=== PATIENT | male | born 1995 | race Caucasian/White ===

== ENCOUNTER 2016-12-15 02:24 | Emergency (ER) | payer BC ==
[2016-12-15 03:00] VITALS: BP 137/91
[2016-12-15 03:33] LABS: Hematocrit 43 % (42-52); Hemoglobin 14.7 g/dl (14.0-18.0); Mean Corpuscular HGB Conc 34 g/dl (31-36); Mean Corpuscular Hemoglobin 29 pg (27-31); Mean Corpuscular Volume 85 fL (80-94); Mean Platelet Volume 7 um3 (7.4-10.4); Red Blood Count 5.04 10^6/ul (4.0-5.4); Red Cell Distribution Width 13 % (10.5-15); White Blood Count 7.5 10^3/ul (3.5-10.8)
--- NOTE | 2016-12-15 03:34 | ED ---
Psychiatric Complaint - HPI Summary HPI Summary: Patient presents for evaluation of acute depression and suicidal thoughts. He is stressed over the prospect of graduating and starting a new job. Drank alcohol and had suicidal thoughts. Sent for evaluation. Previous antidepressant use and psychotherapy with good results. - History Of Current Complaint Chief Complaint: [facility]entalHealth Time Seen by Provider: 12/15/16 03:07 Hx Obtained From: Patient Onset/Duration: Gradual Onset Character: Depressed, Anxious Aggravating Factor(s): Recent Stress Alleviating Factor(s): Nothing Related History: Positive For: Prior Psychiatric Issues - Allergies/Home Medications Allergies/Adverse Reactions: Allergies Allergy/AdvReac Type Severity Reaction Status Date / Time No Known Allergies Allergy Verified 12/15/16 03:03 PMH/Surg Hx/FS Hx/Imm Hx Previously Healthy: Yes Infectious Disease History: No Infectious Disease History: Denies: Traveled Outside the [place] in Last 30 Days - Social History Alcohol Use: Occasionally Alcohol Amount: Pt reports use this date Substance Use Type: Reports: None Substance Use Comment - Amount & Last Used: Pt denies use Smoking Status (MU): Never Smoked Tobacco Review of Systems Positive: Anxious, Depressed All Other Systems Reviewed And Are Negative: Yes Physical Exam Triage Information Reviewed: Yes Vital Signs On Initial Exam: Initial Vitals Temp Pulse Resp BP Pulse Ox 98.4 F 83 16 137/91 96 12/15/16 02:25 12/15/16 02:25 12/15/16 02:25 12/15/16 02:25 12/15/16 02:25 Vital Signs Reviewed: Yes Appearance: Positive: Well-Appearing, No Pain Distress, Well-Nourished Skin: Positive: Warm, Skin Color Reflects Adequate Perfusion, Dry Eyes: Positive: Normal, EOMI, PHIL ENT: Positive: Normal ENT inspection, Hearing grossly normal Respiratory/Lung Sounds: Positive: Clear to Auscultation, Breath Sounds Present Cardiovascular: Positive: Normal, RRR, Pulses are Symmetrical in both Upper and Lower Extremities Abdomen Description: Positive: Nontender, No Organomegaly, Soft Musculoskeletal: Positive: Normal, Strength/ROM Intact Neurological: Positive: Normal, Sensory/Motor Intact, Alert, Oriented to Person Place, Time, CN Intact II-III Psychiatric: Positive: Anxious, Depressed Diagnostics - Vital Signs Vital Signs Temp Pulse Resp BP Pulse Ox 12/15/16 02:25 98.4 F 83 16 137/91 96 - Laboratory Result Diagrams: 12/15/16 02:30 12/15/16 02:30 Lab Statement: Any lab studies that have been ordered have been reviewed, and results considered in the medical decision making process. Course/Dx - Differential Dx/Clinical Impression Differential Diagnosis/HQI/PQRI: Positive: Anxiety, Depression, Suicidal Ideation Provider Diagnosis: DEPRESSIVE D/O,NOS Discharge - Discharge Plan Condition: Stable Disposition: HOME Referrals: RICHIE Parish [Primary Care Provider] -
[2016-12-15 03:42] LABS: Acetaminophen < 15 mcg/mL; Alcohol 202 mg/dL (<10); Anion Gap 10 mmol/L (2-11); BUN/Creatinine Ratio 16.8 (8-20); Blood Urea Nitrogen 17 mg/dL (6-24); CO2 Carbon Dioxide 23 mmol/L (22-32); Calcium 9.6 mg/dL (8.6-10.3); Chloride 108 mmol/L (101-111); EGFR African American 119.9 (>60); EGFR Non-African American 93.2 (>60); Glucose 104 mg/dL (70-100); Potassium 3.8 mmol/L (3.5-5.0); Salicylate < 2.50 mg/dL (<30); Sodium 141 mmol/L (133-145)
[2016-12-15 04:32] LABS: Benzodiazepine Urine Screen None Detected (None Detect)
== END 2016-12-15 10:29 | disposition home or self-care (01) ==
LOC: ED 02:24
DX: F32.9 Major depressive disorder, single episode, unspecified (principal)
CPT/HCPCS: 36415; 80048; 80307; 80320; 80329; 85027; 99284; G0480

== ENCOUNTER 2017-03-25 02:38 | Emergency (ER) | payer BC ==
[2017-03-25 04:00] LABS: Urine Bilirubin Negative (Negative); Urine Glucose Negative (Negative); Urine Nitrite Negative (Negative)
[2017-03-25 04:05] LABS: Hematocrit 42 % (42-52); Hemoglobin 14.4 g/dl (14.0-18.0); Mean Corpuscular HGB Conc 35 g/dl (31-36); Mean Corpuscular Hemoglobin 30 pg (27-31); Mean Corpuscular Volume 86 fL (80-94); Mean Platelet Volume 7 um3 (7.4-10.4); Red Blood Count 4.87 10^6/ul (4.0-5.4); Red Cell Distribution Width 13 % (10.5-15); White Blood Count 8.5 10^3/ul (3.5-10.8)
[2017-03-25 04:08] LABS: ALT 20 U/L (7-52); AST 26 U/L (13-39); Albumin 4.4 g/dL (3.2-5.2); Alkaline Phosphatase 44 U/L (34-104); Anion Gap 10 mmol/L (2-11); BUN/Creatinine Ratio 13.3 (8-20); Blood Urea Nitrogen 15 mg/dL (6-24); CO2 Carbon Dioxide 24 mmol/L (22-32); Calcium 9.4 mg/dL (8.6-10.3); Chloride 104 mmol/L (101-111); EGFR African American 105.4 (>60); EGFR Non-African American 81.9 (>60); Globulin 2.5 g/dL (2-4); Glucose 112 mg/dL (70-100); Sodium 138 mmol/L (133-145); Total Protein 6.9 g/dL (6.4-8.9)
[2017-03-25 04:09] LABS: Acetaminophen < 15 mcg/mL; Alcohol 182 mg/dL (<10); Salicylate < 2.50 mg/dL (<30)
[2017-03-25 04:12] LABS: Benzodiazepine Urine Screen None Detected (None Detect)
[2017-03-25 04:19] LABS: TSH (Thyroid Stimulating Horm) 3.86 mcIU/mL (0.34-5.60)
[2017-03-25] MEDS ORDERED: Potassium Chlor TAB* 20 MEQ TAB.ER PO ONE (14:07)
[2017-03-25 14:40] VITALS: BP 132/77
--- NOTE | 2017-03-25 15:05 | ED ---
IRandell Billy, scribed for J Carlos Jain MD on 03/25/17 at 1412 . Progress - Progress Note Progress Note: Patient was signed out by Dr. Summers at shift change pending [facility]. He was evaluated by Dr. Robles, who determined that he will be discharged home. He was instructed to follow up with the psychiatrist that he had previously worked with 1 month ago. The [facility] has discussed potential therapy options with the patient and family. Course/Dx - Diagnoses Provider Diagnoses: Alcohol use disorder, unspecified depressive disorder Discharge - Discharge Plan Condition: Stable Disposition: HOME Referrals: Abena Avila NP [Primary Care Provider] - The documentation as recorded by the Randell moses Billy accurately reflects the service I personally performed and the decisions made by , J Carlos Jain MD.
== END 2017-03-25 14:39 | disposition home or self-care (01) ==
LOC: ED 02:38
DX: F32.9 Major depressive disorder, single episode, unspecified (principal); Z72.89 Other problems related to lifestyle
CPT/HCPCS: 36415; 80053; 80307; 80320; 80329; 81003; 84443; 85025; 99285; A9270-GY; G0480